=== PATIENT | male | born 1940 | race Caucasian/White ===

== ENCOUNTER 2017-09-15 07:58 | Day surgery (SDC) | payer MEDICARE, BC ==
[~2017-09-15 07:58] MED LIST: AMLO2.5T45 PO; CARV3.1242 PO; CLOP75TA16 PO; EZET1TAB36 PO; FAMO20TA8 PO; FURO80TA87 PO; ISOS30TA6 PO; NITR0.4T49 SL; POTA20TA12 PO; SPIR25TA4 PO; XAR15 GT
[2017-09-15] MEDS ORDERED: LIDOCAINE HCL 1% 20ML VIAL (Pyxis) INJ ONE (10:40)
[2017-09-15] MEDS ORDERED: IODIXANOL 320MG/ML 100 ML BOTTLE IV ONE (10:42)
[2017-09-15] MEDS ORDERED: MIDAZOLAM HCL 2 MG/2 ML VIAL ONE (10:56)
[2017-09-15] MEDS ORDERED: FENTANYL CITRATE/PF 50MCG/ML 2ML VIAL ONE (10:57)
[2017-09-15] MEDS ORDERED: HEPARIN SODIUM 1,000 UNIT/1ML VIAL IV ONE (11:21)
[2017-09-15] MEDS ORDERED: MORPHINE SULFATE 2 MG/ML CPJ (NOT FOR IM USE) IV PRN (12:15)
[2017-09-15] MEDS ORDERED: ONDANSETRON HCL 4MG/2ML VIAL IV PRN (12:15)
[2017-09-15] MEDS ORDERED: NITROGLYCERIN 0.4MG TABLET SL SL PRN (12:15)
[2017-09-15] MEDS ORDERED: CARVEDILOL 3.125 MG TABLET PO SCH (17:00)
[2017-09-15] MEDS ORDERED: POTASSIUM CHLORIDE 20MEQ TABLET SR PO SCH (17:00)
[2017-09-15] MEDS ORDERED: FUROSEMIDE 80MG TABLET PO SCH (17:00)
[2017-09-15] MEDS ORDERED: FAMOTIDINE(NEO) 1MG/ML SUSP PO SCH (17:00)
[2017-09-16] MEDS ORDERED: SPIRONOLACTONE 5MG/ML 1ML ORAL SYR(NEO) PO SCH (09:00)
[2017-09-16] MEDS ORDERED: CLOPIDOGREL 75MG TABLET PO SCH (09:00)
[2017-09-16] MEDS ORDERED: AMLODIPINE 2.5MG TABLET PO SCH (09:00)
[2017-09-16] MEDS ORDERED: RIVAROXABAN 15 MG TABLET GT SCH (09:00)
[2017-09-16] MEDS ORDERED: ISOSORBIDE MONONITRATE 30MG TABLET SR 24HR PO SCH (09:00)
== END 2017-09-15 16:00 | disposition home or self-care (01) ==
LOC: CCL 07:58
PROVIDERS: ATTEND Specialist
DX: I35.0 Nonrheumatic aortic (valve) stenosis (principal); I25.10 Atherosclerotic heart disease of native coronary artery without angina pectoris; I48.91 Unspecified atrial fibrillation; I11.9 Hypertensive heart disease without heart failure; I45.10 Unspecified right bundle-branch block; I27.20 Pulmonary hypertension, unspecified; E78.5 Hyperlipidemia, unspecified; E11.9 Type 2 diabetes mellitus without complications; J44.9 Chronic obstructive pulmonary disease, unspecified; Z80.0 Family history of malignant neoplasm of digestive organs; Z82.49 Family history of ischemic heart disease and other diseases of the circulatory system; I45.19 Other right bundle-branch block; Z95.5 Presence of coronary angioplasty implant and graft
CPT/HCPCS: 93461; 99152; 99153; C1760; C1769; C1887; C1893; J1644; J2250; J3010; J3490; Q9967

== ENCOUNTER → 2018-07-20 | Outpatient (CLI) | payer MEDICARE, BC ==
[~2018-07-20] MED LIST changes: +IOHEXOL-300 100 ML BOTTLE ONE; -SPIR25TA4 PO; +SPIR25TA6 PO
== END | disposition home or self-care (01) ==
LOC: CT 10:42
PROVIDERS: ATTEND Urology
DX: N28.1 Cyst of kidney, acquired (principal); N26.1 Atrophy of kidney (terminal); I51.7 Cardiomegaly; K57.30 Diverticulosis of large intestine without perforation or abscess without bleeding; M41.86 Other forms of scoliosis, lumbar region; C61 Malignant neoplasm of prostate; I25.10 Atherosclerotic heart disease of native coronary artery without angina pectoris; J44.9 Chronic obstructive pulmonary disease, unspecified; E78.5 Hyperlipidemia, unspecified; E11.9 Type 2 diabetes mellitus without complications; I10 Essential (primary) hypertension
CPT/HCPCS: 74018; 74178; Q9967